=== PATIENT | female | born 1965 | race Caucasian/White ===

== ENCOUNTER → 2018-07-15 | Day surgery (SDC) | payer OTHER ==
[2018-07-13 16:54] LABS: BASOPHILS % 0.4 % (0.0-1.0); EOSINOPHILS # (AUTO) 0.3 (0.0-0.4); EOSINOPHILS % 3.5 % (0.0-6.0); HEMATOCRIT 36.3 % (34.2-44.1); HEMOGLOBIN 12.5 g/dL (12.0-16.0); LYMPHOCYTES % 22.1 % (18.0-39.1); MEAN CORPUSCULAR HEMOGLOBIN 31.2 pg (28-32); MEAN CORPUSCULAR HGB CONC 34.4 g/dL (31-35); MEAN CORPUSCULAR VOLUME 90.5 fL (81-99); MONOCYTES # (AUTO) 0.7 (0.2-0.8); MONOCYTES % 7.6 % (4.4-11.3); NEUTROPHILS # (AUTO) 5.9 (2.1-6.9); PLATELET COUNT 244 x10e3/uL (140-360); RED BLOOD COUNT 4.01 x10e6/uL (3.6-5.1); RED CELL DISTRIBUTION WIDTH 12.1 % (11.7-14.4)
[2018-07-13 17:14] LABS: ALANINE AMINOTRANSFERASE 37 IU/L (0-55); ALBUMIN 3.3 g/dL (3.5-5.0); ALKALINE PHOSPHATASE 65 IU/L (40-150); ANION GAP 12.9 mmol/L (8-16); BLOOD UREA NITROGEN 10 mg/dL (7-26); BUN/CREATININE RATIO 13 (6-25); CALCIUM 9.2 mg/dL (8.4-10.2); CARBON DIOXIDE 27 mmol/L (22-29); CHLORIDE 101 mmol/L (98-107); CREATININE, SERUM 0.77 mg/dL (0.57-1.11); EST GLOMERULAR FILTRATION RATE > 60 ML/MIN (60-); GLUCOSE 105 mg/dL (74-118); POTASSIUM 3.9 mmol/L (3.5-5.1); SODIUM 137 mmol/L (136-145)
[~2018-07-15] MED LIST: ACETAMINOPHEN 1000 MG/100 ML 100 ML IV ONE; BUPIVACAINE HCL 0.5% INJ 30 ML VIAL INJ ONE; CEFAZOLIN SOD 2 GM/D5W 50ML 50 ML IV ONE; DEXAMETHASONE SOD PHOS INJ 4 MG/ML VIAL ONE; FENTANYL CITRATE/PF 100MCG/2 ML INJ ONE; GLYCOPYRROLATE INJ 1MG/ 5 ML SYR ONE; KETOROLAC TROMETHAMINE 30 MG/ML VIAL ONE; LIDOCAINE HCL 2% LOCAL INJ 5 ML SDV VIAL INJ ONE; LOSARTAN-HCTZ1 EAC1 PO; MIDAZOLAM HCL 2 MG/2 ML VIAL ONE; NEOSTIGMINE 5 MG/5ML SYR ONE; ONDANSETRON HCL INJ 2 MG/ML VIAL ONE; PROPOFOL IV EMULSION 10 MG/ML 20 ML VIAL ONE; ROCURONIUM BROMIDE 10 MG/ML 5ML VIAL ONE; SEVOFLURANE INHAL SOLN 250 ML PEN BTL ONE; ULTRAM 50MG50 MG PO
--- NOTE | 2018-07-15 11:10 | Operative Report ---
DATE OF PROCEDURE: July 15, 2018 PREOPERATIVE DIAGNOSIS: Chronic cholecystitis cholelithiasis. POSTOPERATIVE DIAGNOSIS: Chronic cholecystitis and cholelithiasis. PROCEDURES 1. Diagnostic laparoscopy. 2. Laparoscopic cholecystectomy. TEAM COORDINATOR: None. ANESTHESIA: General endotracheal. INDICATIONS AND FINDINGS: The patient is a 53-year-old female who has had frequent episodes of right quadrant abdominal pain. Workup revealed gallstones. At surgery, the patient had gallbladder adhesions involving the omentum and duodenum over the neck and fundus of the gallbladder containing at least 1 large stone. Cystic duct was about 3 mm in diameter. Common bile duct was about 5 mm in diameter. There were adhesions in the midline of the abdomen involving the omentum. TECHNIQUE: After adequate general endotracheal anesthesia with the patient in the supine position, the abdomen was prepped and draped in a sterile fashion with Mauricio solution. Skin just to the right of the umbilicus was infiltrated with 0.5% Marcaine. A transverse incision was made. Abdominal wall was elevated and Veress needle was introduced. Pneumoperitoneum was then created. A 10-mm trocar and cannula was then passed through the umbilical wound. The laparoscopic camera was introduced. Initial laparoscopy revealed adhesions involving the omentum. The laparoscope was able to be manipulated around the adhesions of the upper abdomen and could be visualized. Under direct vision, a 10-mm trocar and cannula was placed in the epigastrium. Some adhesions in the right upper quadrant involving the omentum were lysed using scissors and electrocautery. Two 5-mm trocars and cannulas were placed in the right upper quadrant. There were adhesions over the gallbladder which were lysed. The fundus was then grasper and retracted superiorly. Remaining adhesions around the gallbladder were lysed. Peritoneum over the neck of the gallbladder was incised. The gallbladder cystic duct junction was dissected free. Cystic artery was also dissected free. The neck of the gallbladder completely dissected free. Cystic duct was divided between Hemoclips with 3 clips left on the common bile duct side. Cystic artery was also divided between Hemoclips close to the gallbladder. The gallbladder was dissected free from the liver using scissors and electrocautery. Once was it entirely free, it was placed into an Endopouch and brought out through the epigastric cannula. There was 1 large stone. Gallbladder bed was inspected for hemostasis, which was seen to be adequate. It was irrigated with saline. All fluid aspirated. Inspected once again for hemostasis, which was seen to be adequate. Instruments and cannulas were then removed. Pneumoperitoneum was evacuated. Wounds were then closed. Fascia in the umbilical wound and epigastrium wound closed with 0 Vicryl. Skin to all wounds closed with vita. Sterile dressings applied to each wound. The patient tolerated the procedure well. Estimated blood loss was 20 mL. There were no complications. All counts were correct. Patient was taken to the recovery room in satisfactory condition. Job#: [id number] RI cc:SHERLYN LAINEZ MD
[2018-07-15 11:15] VITALS: BP 114/57
== END | disposition home or self-care (01) ==
LOC: OR 06:22
PROVIDERS: ATTEND Surgery
DX: K80.10 Calculus of gallbladder with chronic cholecystitis without obstruction (principal); K82.8 Other specified diseases of gallbladder; I10 Essential (primary) hypertension; F17.210 Nicotine dependence, cigarettes, uncomplicated; Z01.810 Encounter for preprocedural cardiovascular examination; Z01.812 Encounter for preprocedural laboratory examination; Z68.39 Body mass index [BMI] 39.0-39.9, adult
CPT/HCPCS: 36415; 47562; 80053; 85025; 88304; 93005; J1100; J1885; J2001; J2250; J2405; J3490

== ENCOUNTER 2018-07-27 09:44 | Emergency (ER) | payer OTHER ==
[~2018-07-27] VITALS: Ht 162.6 cm; Wt 99.3 kg
[~2018-07-27 09:44] MED LIST changes: -ACETAMINOPHEN 1000 MG/100 ML 100 ML IV ONE; -BUPIVACAINE HCL 0.5% INJ 30 ML VIAL INJ ONE; -CEFAZOLIN SOD 2 GM/D5W 50ML 50 ML IV ONE; -DEXAMETHASONE SOD PHOS INJ 4 MG/ML VIAL ONE; -FENTANYL CITRATE/PF 100MCG/2 ML INJ ONE; -GLYCOPYRROLATE INJ 1MG/ 5 ML SYR ONE; -KETOROLAC TROMETHAMINE 30 MG/ML VIAL ONE; -LIDOCAINE HCL 2% LOCAL INJ 5 ML SDV VIAL INJ ONE; -MIDAZOLAM HCL 2 MG/2 ML VIAL ONE; -NEOSTIGMINE 5 MG/5ML SYR ONE; -ONDANSETRON HCL INJ 2 MG/ML VIAL ONE; -PROPOFOL IV EMULSION 10 MG/ML 20 ML VIAL ONE; -ROCURONIUM BROMIDE 10 MG/ML 5ML VIAL ONE; -SEVOFLURANE INHAL SOLN 250 ML PEN BTL ONE
== END 2018-07-27 10:16 | disposition left against medical advice (07) ==
LOC: ER 09:44
DX: M79.604 Pain in right leg (principal)

== ENCOUNTER 2018-09-18 18:26 | Inpatient (IN) | payer OTHER ==
[~2018-09-18] VITALS: Ht 153.4 cm; Wt 104.8 kg
[2018-09-18] MEDS ORDERED: SODIUM CHLORIDE 0.9% 1000ML 1,000 ML IV STA (18:55)
[2018-09-18] MEDS ORDERED: ONDANSETRON HCL INJ 2 MG/ML VIAL IV ONE (19:15)
[2018-09-18 19:23] LABS: BASOPHILS % 0.1 % (0.0-1.0); EOSINOPHILS # (AUTO) 0.2 (0.0-0.4); HEMATOCRIT 39.6 % (34.2-44.1); HEMOGLOBIN 13.4 g/dL (12.0-16.0); LYMPHOCYTES # (AUTO) 1.7 (1.0-3.2); LYMPHOCYTES % 9.6 % (18.0-39.1); MEAN CORPUSCULAR HEMOGLOBIN 29.5 pg (28-32); MEAN CORPUSCULAR HGB CONC 33.8 g/dL (31-35); MEAN CORPUSCULAR VOLUME 87.2 fL (81-99); MONOCYTES # (AUTO) 1.1 (0.2-0.8); MONOCYTES % 6.1 % (4.4-11.3); NEUTROPHILS # (AUTO) 14.3 (2.1-6.9); NEUTROPHILS % 82.5 % (38.7-80.0); PLATELET COUNT 431 x10e3/uL (140-360); RED BLOOD COUNT 4.54 x10e6/uL (3.6-5.1); RED CELL DISTRIBUTION WIDTH 13.1 % (11.7-14.4)
[2018-09-18 19:36] LABS: INR 0.88; PROTHROMBIN TIME 12.8 seconds (11.9-14.5)
[2018-09-18 19:49] LABS: ALBUMIN 3.2 g/dL (3.5-5.0); ALBUMIN/GLOBULIN RATIO 0.7 (0.8-2.0); ANION GAP 16.5 mmol/L (8-16); CREATININE, SERUM 1.02 mg/dL (0.57-1.11); POTASSIUM 3.5 mmol/L (3.5-5.1)
[2018-09-18 19:55] LABS: CREATINE KINASE MB 0.2 ng/mL (0-5.0)
[2018-09-18 21:32] LABS: COLOR,URINE AMBER (YELLOW)
[2018-09-18 21:33] LABS: BILIRUBIN,URINE 3+ (NEGATIVE); CLARITY,URINE SL CLOUDY (CLEAR); KETONES,URINE 1+ (NEGATIVE); LEUKOCYTE ESTERASE ,URINE TRACE (NEGATIVE); NITRITE,URINE POSITIVE (NEGATIVE); PROTEIN,URINE DIPSTICK 1+ (NEGATIVE); URINE UROBILINOGEN 8 mg/dL (0.2 - 1)
[2018-09-18 21:51] LABS: BACTERIA,URINE MODERATE /HPF; EPITHELIAL CELLS,URINE MODERATE /LPF; RBC,URINE 0-5 /HPF (0-5)
--- NOTE | 2018-09-18 21:54 | Diagnostic Imaging Report ---
EXAM: CHEST SINGLE (PORTABLE), AP 1 view INDICATION: Not provided COMPARISON: None FINDINGS: LINES/TUBES: None LUNGS: No consolidations or edema. PLEURA: No effusions or pneumothorax. HEART AND MEDIASTINUM: Normal size and contour. BONES AND SOFT TISSUES: No acute findings. IMPRESSION: No acute thoracic abnormality. Signed by: Dr. Jacinta Lai M.D. on 09/18/2018 9:51 PM
[2018-09-18] MEDS ORDERED: SODIUM CHLORIDE 0.9% 50ML 50 ML ONE (22:16)
[2018-09-18] MEDS ORDERED: IOPAMIDOL 370 MG/ML 200 ML INFUS..BTL INJ ONE (22:16)
[2018-09-18] MEDS ORDERED: VANCOMYCIN 1GM/NS 250 ML 250 ML IV ONE (22:30)
[2018-09-18] MEDS ORDERED: CEFEPIME HCL 1 GM VIAL IV SCH (22:30)
[2018-09-18] MEDS ORDERED: SODIUM CHLORIDE 0.9% 1000ML 1,000 ML IV ONE (22:45)
[2018-09-19] VITALS (8 sets, daily range): BP systolic 117–128; BP diastolic 52–61
--- NOTE | 2018-09-19 00:13 | Diagnostic Imaging Report ---
EXAM: CT ABDOMEN AND PELVIS with IV CONTRAST DATE: 09/18/2018 6:55 PM Time stamp on Exam: 2053 INDICATION: Right lower quadrant and right upper quadrant pain COMPARISON: None TECHNIQUE: The abdomen and pelvis were scanned using a multidetector helical scanner. Coronal and sagittal reformations were obtained. Dose modulation, iterative reconstruction, and/or weight based adjustment of the mA/kV was utilized to reduce the radiation dose to as low as reasonably achievable. Routine protocol performed. IV Contrast: 100 cc Isovue-370 Oral Contrast: Water FINDINGS: LOWER THORAX: No consolidations. Several pulmonary nodules in the lung bases, examples as follows on series 2: * Right lower lobe 8 mm, image 2 * Left lingula 7 mm, image 1 * Left lingula 8 mm, image 1 LIVER: Numerous hypodense masses with ill-defined borders throughout both lobes of the liver. The largest conglomerate of masses is at the dome measuring up to 6 cm. BILIARY: Cholecystectomy. No ductal dilation. SPLEEN: No masses PANCREAS: No masses ADRENALS: No nodules KIDNEYS: Right kidney: Enhancing partially exophytic 2 cm mass arising from the posterior medial aspect of the right kidney superior pole. No hydronephrosis. Left kidney: There are 3 exophytic hyperdense lesions throughout the left kidney as follows: * Anterior lateral aspect of the interpolar region 3.5 cm, exophytic * Posterior inferior pole 1.5 cm, exophytic * Anterior medial 1.5 cm, exophytic GI TRACT: Surgical sutures along the stomach. Irregular enhancement, focal wall thickening and luminal narrowing of the sigmoid colon for approximately 4 cm segment (series 2, image 71). The more proximal sigmoid colon shows irregular wall enhancement. The more proximal colon is mildly distended with air-fluid levels. VESSELS: Unremarkable PERITONEUM/RETROPERITONEUM: Several peritoneal implants, examples as follows: * Left mid abdomen 1.3 cm, image 44 * Several subcentimeter implants anterior lower abdomen, image 66 LYMPH NODES: No lymphadenopathy REPRODUCTIVE ORGANS: The uterus has been removed. There is a left ovarian origin cystic mass containing large solid components. The lobulated mass measures at least 17 x 20 x 13 cm. BLADDER: Decompressed and compressed by pelvic mass. SOFT TISSUES: Unremarkable BONES: Nonspecific 1.2 cm sclerotic density in the L4 vertebral body. IMPRESSION: 1. Large pelvic cystic and solid mass (measuring up to 20 cm) originating from the left adnexa consistent with malignancy with the primary differential being mucinous ovarian cystadenocarcinoma. 2. Metastatic disease including multiple pulmonary nodules in the lung bases, multiple masses in the liver and peritoneal implants. 3. Focal wall thickening and narrowing of the sigmoid colon results in mild large bowel obstruction. This could be secondary to metastatic disease or a second primary colonic malignancy. 4. There is a 2 cm enhancing mass in the right kidney suspicious for a small renal cell carcinoma. Additional three indeterminate high density cystic lesions in the left kidney are indeterminate and would require further evaluation with CT renal mass protocol. These findings were discussed with Dr. Velásquez September 19, 2018 at 1207 hours. Signed by: Dr. Jacinta Lai M.D. on 09/19/2018 12:10 AM
[2018-09-19] MEDS ORDERED: LOSARTAN POTAS100 MG PO (00:48)
[2018-09-19] MEDS ORDERED: MELOXICAM7.5 MG PO (00:48)
[2018-09-19] MEDS ORDERED: HYDROCHLOROTHIA25 MG PO (00:48)
[2018-09-19] MEDS ORDERED: MORPHINE SULFATE 2 MG/ML SYR IV PRN (01:00)
--- OUTSIDE RECORDS SUMMARY | 2018-09-19 01:09 | XMS REPORT ---
Author [facility] Address Unknown Phone Unavailable Care Team Providers Care [place] Name Role Phone Alanna SCHNEIDER Unavailable Unavailable Problems This patient has no known problems. Allergies, Adverse Reactions, Alerts This patient has no known allergies or adverse reactions. Medications This patient has no known medications. Results Test Description Test Time Test Comments Text Results Atomic Results Result Comments CT ABDOMEN/PELVIS W 2018-09-18 23:42:00 [place] [address] Patient Name: DAWNA PRINCE MR #: [id number] : 1965 Age/Sex: 53/F Req #: [id number] Adm Physician: Ordered by: ROGER MADDEN NP Report #: [id number] Location: ER Room/Bed: Procedure: [id number] CT/CT ABDOMEN/PELVIS W Exam Date: 09/18/18 Exam Time: 2051 REPORT STATUS: Signed EXAM: CT ABDOMEN AND PELVIS with IV CONTRAST DATE: 09/18/2018 6:55 PM Time stamp on Exam: 2053 INDICATION: Right lower quadrant and right upper quadrant pain COMPARISON: None TECHNIQUE: The abdomen and pelvis were scanned using a multidetector helical scanner. Coronal and sagittal reformations were obtained. Dose modulation, iterative reconstruction, and/or weight based adjustment of the mA/kV was utilized to reduce the radiation dose to as low as reasonably achievable. Routine protocol performed. IV Contrast: 100 cc Isovue-370 Oral Contrast: Water FINDINGS: LOWER THORAX: No consolidations. Several pulmonary nodules in the lung bases, examples as follows on series 2: * Right lower lobe 8 mm, image 2 * Left lingula 7 mm, image 1 * Left lingula 8 mm, image 1 LIVER: Numerous hypodense masses with ill-defined borders throughout both lobes of the liver. The largest conglomerate of masses is at the dome measuring up to 6 cm. BILIARY: Cholecystectomy. No ductal dilation. SPLEEN: No masses PANCREAS: No masses ADRENALS: No nodules KIDNEYS: Right kidney: Enhancing partially exophytic 2 cm mass arising from the posterior medial aspect of the right kidney superior pole. No hydronephrosis. Left kidney: There are 3 exophytic hyperdense lesions throughout the left kidney as follows: * Anterior lateral aspect of the interpolar region 3.5 cm, exophytic * Posterior inferior pole 1.5 cm, exophytic * Anterior medial 1.5 cm, exophytic GI TRACT: Surgical sutures along the stomach. Irregular enhancement, focal wall thickening and luminal narrowing of the sigmoid colon for approximately 4 cm segment (series 2, image 71). The more proximal sigmoid colon shows irregular wall enhancement. The more proximal colon is mildly distended with air-fluid levels. VESSELS: Unremarkable PERITONEUM/RETROPERITONEUM: Several peritoneal implants, examples as follows: * Left mid abdomen 1.3 cm, image 44 * Several subcentimeter implants anterior lower abdomen, image 66 LYMPH NODES: No lymphadenopathy REPRODUCTIVE ORGANS: The uterus has been removed. There is a left ovarian origin cystic mass containing large solid components. The lobulated mass measures at least 17 x 20 x 13 cm. BLADDER: Decompressed and compressed by pelvic mass. SOFT TISSUES: Unremarkable BONES: Nonspecific 1.2 cm sclerotic density in the L4 vertebral body. IMPRESSION: 1. Large pelvic cystic and solid mass (measuring up to 20 cm) originating from the left adnexa consistent with malignancy with the primary differential being mucinous ovarian cystadenocarcinoma. 2. Metastatic disease including multiple pulmonary nodules in the lung bases, multiple masses in the liver and peritoneal implants. 3. Focal wall thickening and narrowing of the sigmoid colon results in mild large bowel obstruction. This could be secondary to metastatic disease or a second primary colonic malignancy. 4. There is a 2 cm enhancing mass in the right kidney suspicious for a small renal cell carcinoma. Additional three indeterminate high density cystic lesions in the left kidney are indeterminate and would require further evaluation with CT renal mass protocol. These findings were discussed with Dr. Schneider September 19, 2018 at 1207 hours. Signed by: Dr. Saad Ford M.D. on 09/19/2018 12:10 AM Dictated By: SAAD FORD MD Transcribed By: ESVIN on 09/19/189 COPY TO: ROGER MADDEN NP CHEST SINGLE (PORTABLE) 2018-09-18 21:50:00 [place] [address] Patient Name: DAWNA PRINCE MR #: [id number] : 1965 Age/Sex: 53/F Req #: [id number] Adm Physician: Ordered by: ROGER MADDEN NP Report #: [id number] Location: ER Room/Bed: Procedure: [id number] DX/CHEST SINGLE (PORTABLE) Exam Date: 09/18/18 Exam Time: 2049 REPORT STATUS: Signed EXAM: CHEST SINGLE (PORTABLE), AP 1 view INDICATION: Not provided COMPARISON: None FINDINGS: LINES/TUBES: None LUNGS: No consolidations or edema. PLEURA: No effusions or pneumothorax. HEART AND MEDIASTINUM: Normal size and contour. BONES AND SOFT TISSUES: No acute findings. IMPRESSION: No acute thoracic abnormality. Signed by: Dr. Saad Ford M.D. on 09/18/2018 9:51 PM Dictated By: SAAD FORD MD 50 Transcribed By: ESVIN on 09/18/182150 COPY TO: ROGER MADDEN NP
[2018-09-19] MEDS: SODIUM CHLORIDE 0.9% 1000ML 1,000 ML IV SCH ×4 (02:50→23:14)
--- NOTE | 2018-09-19 08:59 | History and Physical ---
The patient is a patient of Dr. Soliz who comes in with abdominal pain and cramping. HISTORY OF PRESENT ILLNESS: This is Ms. Suze Becerril who is in her usual state of health until couple of days prior to admission. The patient started to have some bloating and abdominal pain and questionable constipation. The patient was given some Linzess yesterday and the patient started to have increased cramping and constipation in vacation. The patient came in and was found to have pelvic mass and admitted for the same. PAST MEDICAL HISTORY: History of hypertension, history of osteoarthritis. ALLERGIES: NO COATED ALLERGIES. PAST SURGICAL HISTORY: History of recent cholecystectomy in April. REVIEW OF SYSTEMS: Negative for chest pain. Negative for shortness of breath. No nausea or vomiting. Positive for constipation. No rectal bleeding. No hematochezia. No hematemesis. No diplopia. No blurry vision. The patient's symptoms have been going on since April. SOCIAL HISTORY: The patient has a history of smoking for about 40-pack history and a pack a day. She stopped about 3 months ago and history of also alcohol intake. PHYSICAL EXAMINATION GENERAL: Alert and oriented x3. VITAL SIGNS: Temperature is 96.9, pulse of 77, respirations 16, blood pressure is 128/60, pulse oximetry of 97%. HEENT: Normocephalic and atraumatic. Pupils are reactive to light and accommodation. CVS: S1 and S2 normal. ABDOMEN: Tender in the left lower quadrant and also in the suprapubic area. EXTREMITIES: No clubbing. No cyanosis. No edema. LABORATORY VALUES: White count is 17,000, hemoglobin is 13.4, and hematocrit of 39.6. Chemistry; sodium 139, potassium 3.5, creatinine 1.02. Magnesium is 2.7. Urine culture and blood culture is pending. IMAGING STUDIES: Chest x-ray shows no acute thoracic abnormalities and abdominal CT and pelvic CT shows large pelvic cyst mass measuring about 20 cm originating from the left adnexa. Metastatic disease include primary pulmonary nodules in the lung bases, multiple masses in the liver and peritoneal implants, focal wall thickening in the sigmoid colon mild large bowel obstruction significant for metastatic disease, 2 cm enhancing mass in the right kidney suspicion for small cell renal cell carcinoma. ASSESSMENT: Abdominal pain secondary probably to metastasis and also adnexal pain. PLAN: Plan is to keep the patient n.p.o. in view of her colitis and she is currently on antibiotics. We will continue her on Zosyn 3.375 every 6 hours. We will try to get an abdominal biopsy through interventional radiology if that is possible today, if not then we can postpone this to Friday. Change her fluids to 175 mL an hour, keep her n.p.o. Restart her home medications with sips of water for hypertension and we will continue to monitor the patient for her leukocytosis. Further recommendations per clinical course. Again unfortunate lady with pelvic mass and abdominal metastasis. Job#: [id number] MERCEDES
[2018-09-19] MEDS: ONDANSETRON HCL INJ 2 MG/ML VIAL IV PRN (09:48)
[2018-09-19] MEDS: PIPER-TAZ 3.375 GM 50 ML IV SCH ×3 (11:55→23:14)
[2018-09-20] VITALS (7 sets, daily range): BP systolic 117–138; BP diastolic 56–71
[2018-09-20] MEDS: PIPER-TAZ 3.375 GM 50 ML IV SCH ×4 (05:18→23:30)
[2018-09-20] MEDS: MORPHINE SULFATE INJ 4 MG/ML INJ IV PRN ×3 (05:23→19:06)
[2018-09-20] MEDS: ONDANSETRON HCL INJ 2 MG/ML VIAL IV PRN ×3 (05:23→19:06)
[2018-09-20 05:51] LABS: BASOPHILS # (AUTO) 0.1 (0.0-0.1); BASOPHILS % 0.6 % (0.0-1.0); EOSINOPHILS # (AUTO) 0.2 (0.0-0.4); EOSINOPHILS % 2.3 % (0.0-6.0); HEMATOCRIT 32.4 % (34.2-44.1); HEMOGLOBIN 10.9 g/dL (12.0-16.0); LYMPHOCYTES # (AUTO) 1.5 (1.0-3.2); LYMPHOCYTES % 17.2 % (18.0-39.1); MEAN CORPUSCULAR HEMOGLOBIN 30.1 pg (28-32); MEAN CORPUSCULAR HGB CONC 33.6 g/dL (31-35); MEAN CORPUSCULAR VOLUME 89.5 fL (81-99); MONOCYTES # (AUTO) 0.7 (0.2-0.8); MONOCYTES % 7.8 % (4.4-11.3); NEUTROPHILS # (AUTO) 6.3 (2.1-6.9); NEUTROPHILS % 71.6 % (38.7-80.0); PLATELET COUNT 297 x10e3/uL (140-360); RED BLOOD COUNT 3.62 x10e6/uL (3.6-5.1); RED CELL DISTRIBUTION WIDTH 13.2 % (11.7-14.4)
[2018-09-20 06:27] LABS: ALANINE AMINOTRANSFERASE 13 IU/L (0-55); ALBUMIN 2.3 g/dL (3.5-5.0); ALBUMIN/GLOBULIN RATIO 0.7 (0.8-2.0); ALKALINE PHOSPHATASE 78 IU/L (40-150); ANION GAP 10.5 mmol/L (8-16); BLOOD UREA NITROGEN 9 mg/dL (7-26); BUN/CREATININE RATIO 12 (6-25); CALCIUM 8.3 mg/dL (8.4-10.2); CARBON DIOXIDE 24 mmol/L (22-29); CHLORIDE 110 mmol/L (98-107); CREATININE, SERUM 0.77 mg/dL (0.57-1.11); EST GLOMERULAR FILTRATION RATE > 60 ML/MIN (60-); GLUCOSE 78 mg/dL (74-118); POTASSIUM 3.5 mmol/L (3.5-5.1); SODIUM 141 mmol/L (136-145)
--- NOTE | 2018-09-20 07:06 | Progress Note ---
DATE: September 20, 2018 SUBJECTIVE: Patient comes in here with abdominal distention, large bowel obstruction, and pelvic mass. The patient is currently complaining of some pain but better. OBJECTIVE VITAL SIGNS: Temperature is 98.0, pulse of 57, blood pressure 124/60, and SpO2 of 96%. GENERAL: Alert and oriented x3. HEENT: Normocephalic, atraumatic. NECK: No JVD. LUNGS: Clear to auscultation bilaterally. CARDIOVASCULAR: S1 and S2 normal. ABDOMEN: Slight tenderness in the left lower quadrant, doing much better. Positive for bowel sounds. EXTREMITIES: No clubbing, no cyanosis, and no edema. NEUROLOGICAL: Nonfocal. LABORATORY DATA: Still pending. ASSESSMENT AND PLAN 1. Pelvic mass with metastasis, needs biopsy. Patient will be scheduled for a CT-guided biopsy tomorrow. 2. Large bowel obstruction: Patient has had good bowel sounds and passing gas. We will advance the diet to clear liquid diet and keep her n.p.o. tonight for biopsy. 3. Pelvic mass with metastasis: Continue monitoring and also continue with the biopsy. 4. Leukocytosis: White count is 17.2. We will trend it and continue on Zosyn 3.375 mg q.6h. 5. Pain control is achieved by morphine, and she is out of pain and Zofran for nausea. Further recommendations per clinical course and also on biopsy results. Job#: [id number] DARIAN
[2018-09-20] MEDS: SODIUM CHLORIDE 0.9% 1000ML 1,000 ML IV SCH ×2 (08:58→16:58)
[2018-09-20 16:24] LABS: ANION GAP 10.4 mmol/L (8-16); BLOOD UREA NITROGEN 8 mg/dL (7-26); BUN/CREATININE RATIO 11 (6-25); CALCIUM 8.1 mg/dL (8.4-10.2); CARBON DIOXIDE 25 mmol/L (22-29); CHLORIDE 105 mmol/L (98-107); CREATININE, SERUM 0.76 mg/dL (0.57-1.11); EST GLOMERULAR FILTRATION RATE > 60 ML/MIN (60-); GLUCOSE 109 mg/dL (74-118); POTASSIUM 3.4 mmol/L (3.5-5.1); SODIUM 137 mmol/L (136-145)
[2018-09-21] VITALS: BP 109/52
[2018-09-21] MEDS: SODIUM CHLORIDE 0.9% 1000ML 1,000 ML IV SCH ×4 (00:58→17:50)
[2018-09-21 04:00] VITALS: BP 115/56
[2018-09-21] MEDS: MORPHINE SULFATE INJ 4 MG/ML INJ IV PRN ×3 (04:55→17:49)
[2018-09-21] MEDS: ONDANSETRON HCL INJ 2 MG/ML VIAL IV PRN ×3 (04:55→17:49)
[2018-09-21] MEDS: PIPER-TAZ 3.375 GM 50 ML IV SCH ×3 (05:44→17:49)
[2018-09-21 06:26] LABS: BASOPHILS % 0.3 % (0.0-1.0); EOSINOPHILS # (AUTO) 0.2 (0.0-0.4); EOSINOPHILS % 2.2 % (0.0-6.0); HEMOGLOBIN 11.1 g/dL (12.0-16.0); LYMPHOCYTES # (AUTO) 1.7 (1.0-3.2); LYMPHOCYTES % 16.4 % (18.0-39.1); MEAN CORPUSCULAR HEMOGLOBIN 29.1 pg (28-32); MEAN CORPUSCULAR HGB CONC 32.6 g/dL (31-35); MONOCYTES # (AUTO) 0.8 (0.2-0.8); MONOCYTES % 7.5 % (4.4-11.3); NEUTROPHILS # (AUTO) 7.5 (2.1-6.9); NEUTROPHILS % 73.3 % (38.7-80.0); PLATELET COUNT 310 x10e3/uL (140-360); RED BLOOD COUNT 3.82 x10e6/uL (3.6-5.1); RED CELL DISTRIBUTION WIDTH 13.2 % (11.7-14.4)
[2018-09-21 06:50] LABS: ANION GAP 9.4 mmol/L (8-16); BLOOD UREA NITROGEN 5 mg/dL (7-26); BUN/CREATININE RATIO 6 (6-25); CALCIUM 8.5 mg/dL (8.4-10.2); CARBON DIOXIDE 27 mmol/L (22-29); CHLORIDE 107 mmol/L (98-107); CREATININE, SERUM 0.77 mg/dL (0.57-1.11); EST GLOMERULAR FILTRATION RATE > 60 ML/MIN (60-); GLUCOSE 89 mg/dL (74-118); POTASSIUM 3.4 mmol/L (3.5-5.1); SODIUM 140 mmol/L (136-145)
[2018-09-21 08:00] VITALS: BP 119/56
[2018-09-21 10:15] VITALS: BP 119/56
[2018-09-21 16:00] VITALS: BP 137/63
[2018-09-21 20:00] VITALS: BP 118/57
[2018-09-22] VITALS: BP 118/54
[2018-09-22] MEDS: PIPER-TAZ 3.375 GM 50 ML IV SCH ×2 (00:01→05:09)
[2018-09-22] MEDS: ONDANSETRON HCL INJ 2 MG/ML VIAL IV PRN (00:16)
[2018-09-22] MEDS: MORPHINE SULFATE INJ 4 MG/ML INJ IV PRN (00:16)
[2018-09-22 00:57] VITALS: BP 118/57
[2018-09-22] MEDS: SODIUM CHLORIDE 0.9% 1000ML 1,000 ML IV SCH ×2 (00:58→08:28)
[2018-09-22 04:00] VITALS: BP 125/57
[2018-09-22] MEDS ORDERED: PNEUMOCOCCAL VACCINE POLYVALENT 23 MCG/0.5 ML VIAL IM ONE (05:30)
[2018-09-22] MEDS ORDERED: INFLUENZA VIRUS VAC SPLIT INJ 0.5 ML SYR IM ONE (05:30)
[2018-09-22] MEDS ORDERED: ULTRAM50 MG PO (08:06)
[2018-09-22 08:54] VITALS: BP 137/63
[2018-09-22 09:34] VITALS: BP 137/63
== END 2018-09-22 09:48 | disposition home or self-care (01) | DRG 375 ==
LOC: ER 18:26 → ERHOLD 09-19 00:58 → MED/SURG 09-19 03:59
PROVIDERS: ADMIT Internal Medicine; ATTEND Internal Medicine
DX: C78.6 Secondary malignant neoplasm of retroperitoneum and peritoneum (principal); C56.9 Malignant neoplasm of unspecified ovary; C64.9 Malignant neoplasm of unspecified kidney, except renal pelvis; Z68.41 Body mass index [BMI] 40.0-44.9, adult; C78.00 Secondary malignant neoplasm of unspecified lung; C78.7 Secondary malignant neoplasm of liver and intrahepatic bile duct; E66.01 Morbid (severe) obesity due to excess calories; I10 Essential (primary) hypertension; M19.90 Unspecified osteoarthritis, unspecified site; Z87.891 Personal history of nicotine dependence; G89.3 Neoplasm related pain (acute) (chronic); D72.829 Elevated white blood cell count, unspecified
CPT/HCPCS: 36415; 71045; 74177; 80048; 80053; 81001; 82150; 82550; 82553; 83605; 83690; 83735; 84484; 85025; 85610; 85730; 87040; 87086; 90732; 93005; 96374; 99284; J0692; J2270; J2405; J2543; J3370; J7030; Q9967

== ENCOUNTER 2018-09-23 10:09 | Emergency (ER) | payer OTHER ==
[~2018-09-23] VITALS: Ht 153.4 cm; Wt 104.8 kg
[~2018-09-23 10:09] MED LIST changes: +HYDROCHLOROTHIA25 MG PO; +LOSARTAN POTAS100 MG PO; +MELOXICAM7.5 MG PO; +ULTRAM50 MG PO
[2018-09-23 12:18] LABS: BASOPHILS % 0.3 % (0.0-1.0); EOSINOPHILS # (AUTO) 0.2 (0.0-0.4); EOSINOPHILS % 2.1 % (0.0-6.0); HEMATOCRIT 33.8 % (34.2-44.1); HEMOGLOBIN 11.7 g/dL (12.0-16.0); LYMPHOCYTES # (AUTO) 1.7 (1.0-3.2); LYMPHOCYTES % 16.2 % (18.0-39.1); MEAN CORPUSCULAR HEMOGLOBIN 29.8 pg (28-32); MEAN CORPUSCULAR HGB CONC 34.6 g/dL (31-35); MEAN CORPUSCULAR VOLUME 86.2 fL (81-99); MONOCYTES # (AUTO) 0.7 (0.2-0.8); MONOCYTES % 6.4 % (4.4-11.3); NEUTROPHILS # (AUTO) 7.8 (2.1-6.9); NEUTROPHILS % 74.5 % (38.7-80.0); PLATELET COUNT 313 x10e3/uL (140-360); RED BLOOD COUNT 3.92 x10e6/uL (3.6-5.1); RED CELL DISTRIBUTION WIDTH 13.1 % (11.7-14.4)
[2018-09-23 12:41] LABS: ALANINE AMINOTRANSFERASE 10 IU/L (0-55); ALBUMIN 2.5 g/dL (3.5-5.0); ALBUMIN/GLOBULIN RATIO 0.7 (0.8-2.0); ALKALINE PHOSPHATASE 83 IU/L (40-150); ANION GAP 13.5 mmol/L (8-16); BLOOD UREA NITROGEN < 5 mg/dL (7-26); CALCIUM 9.2 mg/dL (8.4-10.2); CARBON DIOXIDE 26 mmol/L (22-29); CHLORIDE 104 mmol/L (98-107); CREATININE, SERUM 0.63 mg/dL (0.57-1.11); EST GLOMERULAR FILTRATION RATE > 60 ML/MIN (60-); GLUCOSE 84 mg/dL (74-118); POTASSIUM 3.5 mmol/L (3.5-5.1); SODIUM 140 mmol/L (136-145)
[2018-09-23 12:42] LABS: BUN/CREATININE RATIO 8 (6-25)
[2018-09-23 13:14] LABS: BILIRUBIN,URINE NEGATIVE (NEGATIVE); CLARITY,URINE SL CLOUDY (CLEAR); COLOR,URINE YELLOW (YELLOW); KETONES,URINE 1+ (NEGATIVE); LEUKOCYTE ESTERASE ,URINE NEGATIVE (NEGATIVE); NITRITE,URINE NEGATIVE (NEGATIVE); PROTEIN,URINE DIPSTICK NEGATIVE (NEGATIVE); URINE UROBILINOGEN 1 mg/dL (0.2 - 1)
--- NOTE | 2018-09-23 13:14 | Diagnostic Imaging Report ---
EXAM: ABDOMEN 2 VIEW DATE: 09/23/2018 11:11 AM INDICATION: Unable to urinate, cancer, no bowel movement COMPARISON: None FINDINGS: Cholecystectomy clips. Postsurgical changes GE junction. Bowel gas pattern nonobstructive. Juan catheter present. IMPRESSION: No definite acute finding. CT if indicated. Signed by: Dr. Mohan Ramires MD on 09/23/2018 1:10 PM
[2018-09-23 13:25] LABS: EPITHELIAL CELLS,URINE FEW /LPF
== END 2018-09-23 15:45 | disposition home or self-care (01) ==
LOC: ER 10:09
DX: R33.9 Retention of urine, unspecified (principal); R10.30 Lower abdominal pain, unspecified; C56.9 Malignant neoplasm of unspecified ovary; I10 Essential (primary) hypertension; Z98.84 Bariatric surgery status
CPT/HCPCS: 36415; 51700; 74019; 80053; 81001; 85025; 99284